=== PATIENT | female | born 1960 | race Caucasian/White ===

== ENCOUNTER 2018-06-15 11:41 | Inpatient (IN) | payer OTHER ==
--- NOTE | 2018-06-15 12:10 | ED ---
Psychiatric Complaint - HPI Summary HPI Summary: Patient is a 58 y/o F presenting to ED with complaints of depression. She notes that she lost her parents, partner in the last year and has been depressed as a result. "I lost everything," she states. Patient is being seen outpatient for mental health. PMHx of depression, anxiety. She reports medication change a few months ago, no side effects reported. No SI, no HI reported, but she states that she does sometimes wish that she was . No visual or auditory hallucinations. Patient states that this morning, she was SOB, "panicky". She reports similar episodes in the past. Per triage, "States afraid of everything, not eating". On triage, pain is denied. Nothing is noted to aggravate/ alleviate Sx. Home medications and allergies are reviewed. - History Of Current Complaint Chief Complaint: EDMentalHealth Hx Obtained From: Patient Onset/Duration: Still Present Timing: Constant Severity Currently: None Character: Depressed Aggravating Factor(s): Nothing Alleviating Factor(s): Nothing Associated Signs And Symptoms: Positive: Appetite Change Has Suicidal: Denies: Thoughts Has Homicidal: Denies: Thoughts - Allergies/Home Medications Allergies/Adverse Reactions: Allergies Allergy/AdvReac Type Severity Reaction Status Date / Time codeine Allergy See Comment Verified 11/02/17 06:50 Home Medications: Home Medications Atorvastatin* [Lipitor*] 40 mg PO DAILY 06/15/18 [History Confirmed 06/15/18] DULoxetine DR CAP* [Cymbalta CAP*] 60 mg PO DAILY 06/15/18 [History Confirmed ] Enalapril TAB* [Vasotec TAB*] 20 mg PO DAILY 06/15/18 [History Confirmed ] amLODIPine TAB* [Norvasc 5 mg TAB*] 2.5 mg PO DAILY 06/15/18 [History Confirmed 06/15/18] hydrOXYzine HCL TAB* [Atarax 25 MG TAB*] 25 - 50 mg PO Q6HR PRN 06/15/18 [ History Confirmed 06/15/18] metFORMIN* [Glucophage 500 MG TAB *] 1,000 mg PO QPM 06/15/18 [History Confirmed 06/15/18] metFORMIN* [Glucophage 500 MG TAB *] 500 - 1,000 mg PO QAM 06/15/18 [History Confirmed 06/15/18] PMH/Surg Hx/FS Hx/Imm Hx Endocrine/Hematology History: Reports: Hx Diabetes Cardiovascular History: Reports: Hx Hypertension, Other Cardiovascular Problems/ Disorders - hyperlipidemia Denies: Hx Pacemaker/ICD Respiratory History: Reports: Hx Sleep Apnea - diagnosis per PCP- H&P states pt declines evaluation Denies: Hx Asthma GI History: Reports: Other GI Disorders - diverticulitis requiring colostomy History: Reports: Other Problems/Disorders - urinary incontinence Denies: Hx Renal Disease Musculoskeletal History: Reports: Hx Arthritis - OA, Other Musculoskeletal History - hx left ankle fx and 3 ribs Sensory History: Denies: Hx Hearing Aid Psychiatric History: Reports: Hx Anxiety, Hx Depression, Other Psychiatric Issues/Disorders - very weepy - mom, dad and spouse all since may 2017 Denies: Hx Panic Disorder - Surgical History Surgery Procedure, Year, and Place: Rt HIP REPLACEMENT;. COLON RESECTION - DIVERTICULITIS;. TUBAL LIGATION; Hx Anesthesia Reactions: No Infectious Disease History: No Infectious Disease History: Denies: Traveled Outside the [place] in Last 30 Days - Family History Known Family History: Positive: Other - FMHx of depression, anxiety is denied - Social History Alcohol Use: Rare Substance Use Type: Reports: Marijuana Substance Use Comment - Amount & Last Used: reports daily Smoking Status (MU): Former Smoker Type: Cigarettes Amount Used/How Often: 1 ppd for past 40 years Review of Systems Positive: Shortness Of Breath Psychological: Other - POSITIVE - DEPRESSION; NEGATIVE - SI, HI All Other Systems Reviewed And Are Negative: Yes Physical Exam - Summary Physical Exam Summary: Appearance: Well appearing, no pain distress; crying, depressed affect Skin: warm, dry, reflects adequate perfusion Head/face: normal Eyes: EOMI, OFELIA ENT: normal Neck: supple, non-tender Respiratory: CTA, breath sounds present Cardiovascular: RRR, pulses symmetrical Abdomen: non-tender, soft Musculoskeletal: normal, strength/ROM intact Neuro: normal, sensory motor intact, A&Ox3 Triage Information Reviewed: Yes Vital Signs On Initial Exam: Initial Vitals Temp Pulse Resp BP Pulse Ox 98.3 F 94 22 175/90 99 06/15/18 11:47 06/15/18 11:47 06/15/18 11:47 06/15/18 11:47 06/15/18 11:47 Vital Signs Reviewed: Yes Diagnostics - Vital Signs Vital Signs Temp Pulse Resp BP Pulse Ox 06/15/18 11:47 98.3 F 94 22 175/90 99 - Laboratory Result Diagrams: 06/15/18 12:03 06/15/18 12:03 Lab Statement: Any lab studies that have been ordered have been reviewed, and results considered in the medical decision making process. Re-Evaluation - Re-Evaluation First Eval Re-Evaluation Time: 13:00 Comment: Patient medically cleared for MHE. Course/Dx - Course Course Of Treatment: Patient is a 58 y/o F presenting to ED with complaints of depression. She notes that she lost her parents, partner in the last year and has been depressed as a result. "I lost everything," she states. Patient is being seen outpatient for mental health. PMHx of depression, anxiety. She reports medication change a few months ago, no side effects reported. No SI, no HI reported, but she states that she does sometimes wish that she was . No visual or auditory hallucinations. Patient states that this morning, she was SOB , "panicky". She reports similar episodes in the past. On physical exam, patient is noted to be crying, depressed affect. Bloodwork, UA, urine tox screen obtained. Patient was medically cleared for MHE. During ED course, patient received Bactrim Ds 800/160 tab 1 tab PO ONCE, micotine inhaler 10 mg INH Q2H PRN CRAVING, and Nicotine mouth piece 1 each INH ONCE PRN CRAVING. 1944 - Patient's case had been reviewed by Dr. Nieto, patient is agreeable with voluntary admission. - Differential Dx/Clinical Impression Differential Diagnosis/HQI/PQRI: Positive: Anxiety, Depression Provider Diagnosis: Depression - Physician Notifications Discussed Care Of Patient With: Franki Nieto Time Discussed With Above Provider: 19:45 Instructed by Provider To: Other - 1944 - Patient's case had been reviewed by Dr. Nieto, patient is agreeable with voluntary admission. Discharge - Sign-Out/Discharge Documenting (check all that apply): Patient Departure - admit - Discharge Plan Condition: Good [place] [place]position and Condition Condition: GOOD Disposition: [place] [facility] [place] Attestation Statements Document Initiated by Scribe: Yes Documenting Scribe: IMELDA JONES Provider For Whom Scribe is Documenting (Include Credential): LOUISA HILARIO MD Scribe Attestation: IIMELDA , scribed for LOUISA HILARIO MD on 06/15/18 at 2006. Scribe Documentation Reviewed: Yes Provider Attestation: The documentation as recorded by the scribeIMELDA accurately reflects the service I personally performed and the decisions made by me, LOUISA HILARIO MD Status of Scribe Document: Viewed
[2018-06-15 12:14] LABS: ABS Basophils 0 10^3/ul (0-0.2); ABS Eosinophils 0.1 10^3/ul (0-0.6); ABS Monocytes 0.6 10^3/ul (0-0.8); ABS Neutrophils 9.4 10^3/ul (1.5-7.7); ABS Nucleated RBC 0 10^3/ul; Eosinophil % 0.8 %; Hematocrit 49 % (35-47); Hemoglobin 16.5 g/dl (12.0-16.0); Lymphocyte % 16.3 %; Mean Corpuscular HGB Conc 34 g/dl (31-36); Mean Corpuscular Hemoglobin 31 pg (27-31); Mean Corpuscular Volume 92 fL (80-97); Mean Platelet Volume 7.5 fL (7.4-10.4); Nucleated Red Blood Cells % 0; Platelet Count 336 10^3/ul (150-450); Red Blood Count 5.33 10^6/ul (4.00-5.40); Red Cell Distribution Width 13 % (10.5-15); White Blood Count 12.2 10^3/ul (3.5-10.8)
[2018-06-15 12:30] LABS: ALT 16 U/L (7-52); AST 16 U/L (13-39); Albumin 4.6 g/dL (3.2-5.2); Albumin/Globulin Ratio 1.8 (1-3); Alkaline Phosphatase 75 U/L (34-104); Anion Gap 12 mmol/L (2-11); BUN/Creatinine Ratio 33.8 (8-20); Blood Urea Nitrogen 24 mg/dL (6-24); CO2 Carbon Dioxide 19 mmol/L (22-32); Calcium 9.9 mg/dL (8.6-10.3); Chloride 105 mmol/L (101-111); EGFR Non-African American 84.3 (>60); Globulin 2.6 g/dL (2-4); Glucose 93 mg/dL (70-100); Potassium 4.1 mmol/L (3.5-5.0); Sodium 136 mmol/L (135-145); Total Protein 7.2 g/dL (6.4-8.9)
[2018-06-15 12:50] LABS: Acetaminophen < 15 mcg/mL; Alcohol < 10 mg/dL (<10); Salicylate < 2.50 mg/dL (<30)
[2018-06-15 13:03] LABS: TSH (Thyroid Stimulating Horm) 1.18 mcIU/mL (0.34-5.60)
[2018-06-15 15:01] LABS: Urine Appearance Cloudy; Urine Bacteria 1+ (Absent); Urine Bilirubin Negative (Negative); Urine Blood 1+ (Negative); Urine Color Yellow; Urine Glucose Negative (Negative); Urine Ketones 2+ (Negative); Urine Nitrite Negative (Negative); Urine Protein Negative (Negative); Urine Red Blood Cell 2+(6-10/hpf) (Absent); Urine Specific Gravity 1.025 (1.010-1.030); Urine Squamous Epithelial Cell Present (Absent); Urine Urobilinogen Negative (Negative); Urine White Blood Cell 1+(6-10/hpf) (Absent)
[2018-06-15 15:21] LABS: Barbiturates Urine Screen None Detected (None Detect); Benzodiazepine Urine Screen None Detected (None Detect); Urine Cannabinoids Screen Presumptive Positive (None Detect)
[2018-06-15] MEDS ORDERED: Sulfamethox/Trimethoprim DS 800/160* TAB PO ONE (17:42)
[2018-06-15] MEDS ORDERED: Mouth Piece, Nicotine* 1 EACH CARTRIDGE ONE (19:16)
[2018-06-15] MEDS ORDERED: Nicotine Inhaler* 10 MG AMP ONE (19:16)
[2018-06-15] MEDS: Nicotine Inhaler* 10 MG AMP INH PRN (19:21)
[2018-06-15] MEDS ORDERED: Mouth Piece, Nicotine* 1 EACH CARTRIDGE INH PRN (19:26)
[2018-06-16] MEDS ORDERED: Al Hydrox/Mg Hydrox/Simet LIQ* 30 ML UDC PO PRN (01:50)
[2018-06-16] MEDS ORDERED: Acetaminophen TAB* 325 MG PO PRN (01:50)
[2018-06-16] MEDS ORDERED: hydrOXYzine HCL TAB* 25 MG PO PRN (01:54)
[2018-06-16 08:20] LABS: HDL Cholesterol 25.4 mg/dL
[2018-06-16] MEDS: DULoxetine DR CAP* 60 MG CAP.DR PO SCH (09:48)
[2018-06-16] MEDS: Enalapril TAB* 20 MG PO SCH (09:48)
[2018-06-16] MEDS: amLODIPine TAB* 5 MG PO SCH (09:48)
[2018-06-16] MEDS: metFORMIN* 500 MG TAB PO SCH ×2 (09:48→18:27)
[2018-06-16] MEDS: Vitamin THERAPEUTIC TAB PO SCH (09:49)
[2018-06-16] MEDS: Nicotine Inhaler* 10 MG AMP INH PRN ×2 (11:29→18:25)
--- NOTE | 2018-06-16 15:12 | HP ---
HISTORY AND PHYSICAL: DATE OF ADMISSION: 06/15/18 SUPERVISING PSYCHIATRIST: Dr. Nolan Cruz.* (DICTATED BY RANDELL GANT NP) PRIMARY CARE PROVIDER: Dr. Kayla Pastor. JUSTIFICATION FOR ADMISSION: The patient presented to the emergency department with vague passive wish, sad mood, severe anxiety. The patient reports inability to care for herself and merits hospitalization for immediate safety and stabilization. CHIEF COMPLAINT: "I am just so discouraged!" HISTORY OF PRESENT ILLNESS: Kayla is a 58-year-old white female domiciled, tenuously who was living with her partner of 29 years until he nearly a year ago and reports significant depression since then. She is currently residing with an acquaintance after the children of her partner pursued court proceedings to have her evicted last January. She reports depressed mood, feeling overwhelmed and frustrated with attempting to find her own housing. She endorses poor sleep, frequent waking, and decreased appetite. She endorses anhedonia, crying most of the time, and anxiety. The patient denies history of lore, auditory or visual hallucinations, delusions, OCD, or phobias. She reports having pursued disability in [place] which will start tomorrow 06/17/18. The patient reports her primary stressor is current living situation. She states that it is overwhelming to attempt to find new housing and especially so because of owning pets. She states that she is currently staying with the grandmother of kids she used to care for. They are 12, 13, and 6. She identifies that she moved into this situation last February. Prior to that she had been living in her late partner's home and they had been together for 29 years. She states that his children are planning to sell the home. She states they told her she could stay and then changed their mind. She reports they " had to take me to court and then gave me 5 days to get out." The patient states she is unsure if she should utilize disability income for rental or if she should plan to pay a part of down payment on owning the home when Heri's home is sold. The patient denies suicidal ideation or passive wish. She denies a history of suicidal ideation or attempts at self-harm. She denies a history of violence or aggression. PAST PSYCHIATRIC HISTORY: The patient states that she had a panic attack that lasted a very long time around the year 1999 and started Paxil at this time through primary care provider. She stated seeing a counselor at [facility] approximately 6 months ago and also sees a psychiatric nurse practitioner. She was changed from Paxil to duloxetine since starting treatment at the [facility]. She denies other psychiatric treatment. She was court ordered to go to classes at [facility] [employer] and [employer] for a DWI in 2018. TRAUMA ABUSE HISTORY: The patient denies history of abuse. Her partner of 29 years 07/13/17. Her parents in 2017. PAST MEDICAL HISTORY: Diverticulosis, hypercholesterolemia, hypertension, depression, anxiety, diabetes mellitus 2. PAST SURGICAL HISTORY: Colectomy with the colostomy and then reverse in 2006, bilateral hip replacements. CURRENT MEDICATIONS: 1. Amlodipine 2.5 mg p.o. daily. 2. Vitamin B12 1000 mcg p.o. q.p.m. 3. Duloxetine DR 60 mg p.o. daily. 4. Enalapril 20 mg p.o. daily. 5. Metformin 500 mg p.o. b.i.d. ALLERGIES: CODEINE causes itchiness and nausea. FAMILY PSYCHIATRIC HISTORY: The patient denies history of mental illness or suicide in the family. SOCIAL HISTORY: The patient is middle of 3 children by her parents. She has an older brother and a younger brother. Her parents when she was approximately 4 years old. Her dad eventually moved to [place]. She and her brothers were raised by her mother and their stepfather, "Ariel." The patient has 2 brothers and 2 stepbrothers as well. She completed school after the 12th grade with the exception of a history class. She has not attended college. 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 The patient does not have biological children. Her partner's children are in their 40s to 50s. SUBSTANCE USE HISTORY: The patient denies alcohol use. She reports smoking a joint every couple days but has not done so for a week due to stressors. Smokes cigarettes approximately half pack per day. LEGAL HISTORY: The patient reports being arrested for the DWI with marijuana approximately 5 years ago. REVIEW OF SYSTEMS: Constitutional: Negative. No fever, chills, or fatigue. ENT: Negative. Cardiovascular: Negative. Denies chest pain or palpitations. Respiratory: Negative. Denies shortness of breath or cough. Genitourinary: Negative. Musculoskeletal: Negative. Neurological: Negative. PHYSICAL EXAMINATION Height 5 feet 2 inches, weight 206 pounds. LMP, she is postmenopausal. The patient declines physical exam. She was evaluated in the emergency department and deemed appropriate for a psychiatric admission. For further exam data, please see ED provider report. Vital Signs: T 97.7, P 81, RR 16, O2 saturation 100%. BP 139/83. LABORATORY DATA: WBC 12.2, hemoglobin 16.5, hematocrit 49, absolute neutrophils 9.4. Chemistry: Carbon dioxide 19, anion gap 12, BUN to creatinine ratio 33.8. Hemoglobin A1c 6.2. TSH normal at 1.18. Lipid panel within normal limits. Urinalysis positive ketones, blood, leukocyte esterase, wbc, and rbc. Squamous epithelial cells present. Urine bacteria positive. Toxicology negative for salicylates, acetaminophen, or alcohol. Urine drug screen is positive for cannabinoids which is consistent with the patient's report. MENTAL STATUS EXAM: The patient is a 58-year-old white female, obese, wearing hospital scrubs. She is lying in a bed upon approach and is agreeable to meet with race and sports book writer in [facility]. She appears stated age. She is poorly groomed likely due to not having her own clothing at this time. She is alert and oriented x3. Eye contact is fair. Speech is soft, articulate. Mood is dysphoric with tearful affect. No abnormal psychomotor activity noted. Thought process is circumstantial; otherwise, logical. Thought content is negative for SI, HI, or passive wish. She denies auditory or visual hallucinations. Insight and judgment are fair. Fund of knowledge is adequate. DIAGNOSES: [place] I: Unspecified depressive disorder, bereavement, adjustment disorder with disturbance of mood. [place] II: Hypercholesteremia, hypertension, diabetes mellitus 2, hypertension, obesity. ASSESSMENT: Kayla is a 58-year-old white female tenuously domiciled who presents to the emergency department with reports or increased depression and anxiety related to psychosocial stressors. She is having difficulty obtaining her own housing after living with her partner for 29 years. He approximately 1 year ago. Since then, it seems as though there has been contention between she and her stepchildren in regards to selling the home. This went so far as to having court proceedings last January wherein the patient was expected to move out. She is currently living with an acquaintance and wants to find her own housing but is needing resources in order to do so. The patient will likely benefit from milieu therapy along with structure and routine for depressive symptoms. PLAN: The patient is admitted to adult behavioral services unit on voluntary status. Code status is full. She is placed on safety checks every 15 minutes. She is encouraged to participate in supportive milieu, individual sessions with staff, and psychoeducational groups. We will increase duloxetine and monitor for mood and thought content. Estimated length of stay is 1 to 2 days. Discharge planning will include outpatient providers for the patient's consent. RANDELL GANT NP [id number]/[facility] #: [id number] KP
[2018-06-16] MEDS: Sulfamethox/Trimethoprim DS 800/160* TAB PO SCH ×2 (16:31→22:21)
[2018-06-16] MEDS: Nicotine PATCH 14 MG/24 HR* PATCH TRANSDERM SCH (16:59)
[2018-06-16] MEDS ORDERED: Cyanocobalamin TAB* 500 MCG PO SCH (18:00)
[2018-06-16] MEDS ORDERED: Atorvastatin* 40 MG TAB PO SCH (18:00)
[2018-06-16] MEDS ORDERED: Nicotine Patch Removal NOTE FOLLOW UP SCH (21:00)
[2018-06-17] MEDS: Vitamin THERAPEUTIC TAB PO SCH (08:23)
[2018-06-17] MEDS: Sulfamethox/Trimethoprim DS 800/160* TAB PO SCH (08:23)
[2018-06-17] MEDS: DULoxetine DR CAP* 60 MG CAP.DR PO SCH (08:23)
[2018-06-17] MEDS: amLODIPine TAB* 5 MG PO SCH (08:23)
[2018-06-17] MEDS: metFORMIN* 500 MG TAB PO SCH (08:23)
[2018-06-17] MEDS: Nicotine PATCH 14 MG/24 HR* PATCH TRANSDERM SCH (08:25)
[2018-06-17] MEDS: Enalapril TAB* 20 MG PO SCH (09:59)
[2018-06-17 10:25] VITALS: BP 138/70
--- NOTE | 2018-06-17 14:28 | DS ---
DISCHARGE SUMMARY: DATE OF ADMISSION: 06/15/18 DATE OF DISCHARGE: 06/17/18 SUPERVISING PSYCHIATRIST: Dr. Nolan Cruz.* (DICTATED BY RANDELL GANT NP) DIAGNOSES: 1. Unspecified depressive disorder. 2. Brief reaction with prolonged bereavement. 3. Adjustment disorder with depressed mood. MENTAL STATUS EXAM: The patient is a 58-year-old white female, well groomed, obese wearing her own clothing. She is sitting in chair, in milieu, upon approach. She is alert and oriented x3. She is cooperative and engages in conversation. Eye contact is good. Speech is soft and articulate. Mood is euthymic with restricted affect. No abnormal psychomotor activity noted. Thought process is logical, goal directed. Thought content is negative for SI, HI, or passive wish. She denies auditory or visual hallucinations. Insight and judgment are good. Fund of knowledge is adequate. INSTRUCTIONS TO PATIENT: A. Medications: 1. No medication changes were made with the except of Bactrim for acute cystitis and 2. Hydroxyzine 25 mg p.o. t.i.d. p.r.n. She will resume the following medications through a primary care provider: 1. Amlodipine 2.5 mg p.o. daily. 2. Atorvastatin 40 mg p.o. q.p.m. 3. Cyanocobalamin or vitamin B12 1000 mcg p.o. q.p.m. 4. Duloxetine 60 mg p.o. daily. 5. Enalapril 20 mg daily. 6. Metformin 500 mg p.o. b.i.d. B. Diet: Diabetic diet. C. Activity: Ambulation as tolerated. Tobacco cessation was declined by the patient. There are no pending labs or diagnostic studies. D. Followup care: The patient will follow up with [facility] and has an appointment with her therapist on 06/20/18. She will follow up with her primary care provider, has an appointment on , 06/23/18, Dr. Kayla Pastor. E. Substance use followup is not applicable. HOSPITAL COURSE: Part A: Reason for admission: The patient presented to the emergency department with vague passive wish, sad mood, and severe anxiety. Kayla is a 58-year-old white female domiciled tenuously, who was living with her partner of 29 years until he nearly a year ago and reports significant depression since then. She is currently residing with an acquittance after the children of her partner pursued court's proceedings to have her evicted last January. She reports depressed mood, feeling overwhelmed, and frustrated with attempting to find her own housing. She endorses poor sleep with weight gain and increased appetite. She endorses anhedonia, crying most of the time, and anxiety. She denies a history of lore , auditory or visual hallucinations, delusions, OCD or phobias. The patient reports her primary stressor is the current living situation and that it is overwhelming to attempt to find new housing and especially so because of owning pets. The patient denies suicidal ideation or passive wish. She denies a history of suicidal ideation or attempts at self-harm. She denies a history of violence or aggression. Part B: Psychiatric treatment rendered: The patient was ambivalent about being admitted to the mental health unit while being evaluated in the emergency room. She agreed to admission on voluntary status. She was placed on 15 minutes check for her safety. Her code status is full. She was encouraged to participate in supportive milieu, individual session for staff, and psychoeducational groups. Today, the patient reports desire to be discharged from the hospital. She states that staying in the hospital may cause more decompensation. She is eager to return home to care for her pets. She states she wants to pursue housing and does not want to wait to do so by being in the hospital over the weekend. The patient denies need for medication changes and reports that being on the unit for a brief period was helpful in gaining insight. She denies suicidal ideation due to obligation to treat in least restrictive setting. Treatment team agreed upon discharge today. The patient was encouraged to call the unit or to return to the ED if symptoms worsen. RANDELL GANT, FERNANDO [id number]/[facility] #: [id number] KP
== END 2018-06-17 13:00 | disposition home or self-care (01) | DRG 754 ==
LOC: ED 11:41 → BSU 19:15
PROVIDERS: ADMIT Psychiatry & Neurology Psychiatry; ATTEND Psychiatry & Neurology Psychiatry
DX: F43.21 Adjustment disorder with depressed mood (principal); E11.9 Type 2 diabetes mellitus without complications; I10 Essential (primary) hypertension; G47.30 Sleep apnea, unspecified; E78.00 Pure hypercholesterolemia, unspecified; Z96.643 Presence of artificial hip joint, bilateral; M19.90 Unspecified osteoarthritis, unspecified site; E66.9 Obesity, unspecified; F41.9 Anxiety disorder, unspecified; Z98.51 Tubal ligation status; Z88.5 Allergy status to narcotic agent; Z63.4 Disappearance and death of family member; Z81.8 Family history of other mental and behavioral disorders; Z87.891 Personal history of nicotine dependence; Z90.49 Acquired absence of other specified parts of digestive tract; Z68.37 Body mass index [BMI] 37.0-37.9, adult; Z79.4 Long term (current) use of insulin
CPT/HCPCS: 36415; 80053; 80061; 80307; 80320; 80329; 81003; 81015; 83036; 84443; 85025; 87086; 99284; A9270-GY; G0480